=== PATIENT | female | born 1930 | race Caucasian/White ===

== ENCOUNTER 2016-12-10 21:01 | Inpatient (IN) | payer MEDICARE, BC ==
[~2016-12-10] VITALS: Ht 160 cm; Wt 51.3 kg
[2016-12-10 21:22] VITALS: BP 130/58
[2016-12-10 21:43] LABS: BASOPHILS % (AUTO) 1.7 % (0.0-2.0); EOSINOPHILS % (AUTO) 3.6 % (0.0-3.0); LYMPHOCYTES % (AUTO) 30.3 % (20.0-45.0); MEAN CORPUSCULAR HEMOGLOBIN 31.1 PG (27.0-31.0); MEAN CORPUSCULAR HGB CONC 32.3 G/DL (32.0-36.0); MEAN CORPUSCULAR VOLUME 96 FL (80-99); MEAN PLATELET VOLUME 5.5 FL (6.5-10.1); MONOCYTES % (AUTO) 7.9 % (1.0-10.0); NEUTROPHILS % (AUTO) 56.5 % (45.0-75.0); PLATELET COUNT 331 K/UL (150-450); RED CELL DISTRIBUTION WIDTH 13.3 % (11.6-14.8); WHITE BLOOD COUNT 6.9 K/UL (4.8-10.8)
--- NOTE | 2016-12-10 21:45 | Emergency Room Report ---
History of Present Illness General Chief Complaint: Generalized Weakness Source: Family Member, EMS Present Illness HPI The patient is 86-year-old female brought in by ambulance after a reported near syncopal episode. The patient had prior history of dementia. Patient was noted to be in a restaurant seated when she became less responsive. She was not answering questions or responding. She's not noted to have seizure activity or change in her skin color. Patient had recently been started on an antihistamine. She denied having any vomiting or diarrhea. Patient was brought in by EMS. She was noted to have adequate blood sugar. She had not been having any fever. She is normally cared for by her son Allergies: Coded Allergies: No Known Allergies (Unverified , 12/10/16) Patient History Past Medical History: see triage record Now: No Reviewed Nursing Documentation: PMH: Agreed, PSxH: Agreed Nursing Documentation-PMH Past Medical History: No History, Except For Hx Neurological Problems: Yes - Alzeimer, dementia Review of Systems All Other Systems: negative except mentioned in HPI Physical Exam Vital Signs Date Time Temp Pulse Resp B/P Pulse Ox O2 Delivery O2 Flow Rate FiO2 12/10/16 21:00 98.6 68 14 106/72 99 Room Air Sp02 EP Interpretation: reviewed, normal General Appearance: normal inspection, well appearing, no apparent distress, alert, other - GCS 14 E4 V4 M6 Head: atraumatic ENT: normal ENT inspection, hearing grossly normal, normal voice Neck: normal inspection, full range of motion, supple, no bony tend Respiratory: normal inspection, lungs clear, normal breath sounds, no respiratory distress, no retraction, no wheezing Cardiovascular #1: regular rate, rhythm, no edema Gastrointestinal: normal inspection, normal bowel sounds, non tender, soft, no guarding, no hernia Genitourinary: no CVA tenderness Musculoskeletal: normal inspection, back normal, normal range of motion Neurologic: normal inspection, alert, responsive, television announcer III-XII nml as tested, motor strength/tone normal, speech normal Psychiatric: normal inspection, judgement/insight normal, mood/affect normal Skin: normal inspection, normal color, no rash Medical Decision Making Diagnostic Impression: Primary Impression: Near syncope Additional Impression: Dementia ER Course lDifferential diagnosis included but not limited to syncope versus seizure. Potential causes for syncope included but was not limited to arrhythmia, dehydration, acute coronary syndrome, severe anemia, pulmonary embolus.Because of complexity of patient's case laboratory testing and imaging studies were ordered. The patient was noted to have normal white blood count. The laboratory testing was unremarkable. Chest x-ray one view interpreted by me showed a left lung effusion versus scarring without evident infiltrate normal cardiac size. Patient was discussed with Dr. Serna for observation for near syncope. Labs Test 12/10/16 21:33 White Blood Count 6.9 K/UL (4.8-10.8) Red Blood Count 4.50 M/UL (4.20-5.40) Hemoglobin 14.0 G/DL (12.0-16.0) Hematocrit 43.3 % (37.0-47.0) Mean Corpuscular Volume 96 FL (80-99) Mean Corpuscular Hemoglobin 31.1 PG (27.0-31.0) Mean Corpuscular Hemoglobin Concent 32.3 G/DL (32.0-36.0) Red Cell Distribution Width 13.3 % (11.6-14.8) Platelet Count 331 K/UL (150-450) Mean Platelet Volume 5.5 FL (6.5-10.1) Neutrophils (%) (Auto) 56.5 % (45.0-75.0) Lymphocytes (%) (Auto) 30.3 % (20.0-45.0) Monocytes (%) (Auto) 7.9 % (1.0-10.0) Eosinophils (%) (Auto) 3.6 % (0.0-3.0) Basophils (%) (Auto) 1.7 % (0.0-2.0) Chest X-Ray Diagnostic Results EP Interpretation: Yes Findings: no consolidation, no pneumothorax, no acute cardiopulmonary disease, other - effusion left Number of Views: 1 Last Vital Signs Date Time Temp Pulse Resp B/P Pulse Ox O2 Delivery O2 Flow Rate FiO2 12/10/16 21:22 70 15 130/58 99 Room Air 12/10/16 21:00 98.6 Status: unchanged Disposition: ADMITTED INPATIENT Condition: Serious Referrals: NON PHYSICIAN (PCP) Lupillo Hernandez Dec 10, 2016 21:45
[2016-12-10 21:58] LABS: ALANINE AMINOTRANSFERASE 6 U/L (3-33); ANION GAP 14 (5-15); ASPARTATE AMINO TRANSFERASE 13 U/L (5-40); CALCIUM 8.9 mg/dL (8.6-10.2); CARBON DIOXIDE 26 mEQ/L (20-30); CHLORIDE 101 mEQ/L (98-107); CREATININE 0.8 mg/dL (0.5-0.9); HEMOLYSIS 5; POTASSIUM 3.6 mEQ/L (3.4-4.9); SODIUM 141 mEQ/L (135-145); TOTAL PROTEIN 6.6 g/dL (6.6-8.7); TROPONIN I < 0.30 ng/mL (<=0.30)
[2016-12-10 22:09] LABS: CKMB < 1.5 ng/mL (< 3.8)
[2016-12-10] MEDS ORDERED: ALENDRONATE SOD10 MG ORAL (22:19)
[2016-12-10 22:32] LABS: APPEARANCE,URINE CLEAR; KETONES,URINE NEGATIVE (NEGATIVE); LEUKOCYTE ESTERASE ,URINE NEGATIVE (NEGATIVE); NITRITE,URINE NEGATIVE (NEGATIVE); PH,URINE 6.5 (4.5-8.0); PROTEIN,URINE 1+ (NEGATIVE); UROBILINOGEN,URINE NORMAL MG/DL (0.0-1.0)
[2016-12-10 22:54] VITALS: BP 132/62
[2016-12-10 22:58] LABS: RBC,URINE 0-2 /HPF (0 - 2); WBC,URINE 0-2 /HPF (0 - 2)
[2016-12-10 22:59] LABS: BACTERIA,URINE OCCASIONAL /HPF
[2016-12-11] VITALS (7 sets, daily range): BP systolic 109–149; BP diastolic 55–92
[2016-12-11] MEDS: NovoLOG Insulin Flexpen SUBQ SCH ×3 (06:24→22:25)
[2016-12-11] MEDS: ALENDRONATE 10 MG ORAL SCH (08:00)
[2016-12-11] MEDS: Aspirin Baby 81mg ORAL SCH (08:31)
[2016-12-11] MEDS: Heparin 5000 units/ml inj SUBQ SCH ×2 (08:33→22:22)
--- NOTE | 2016-12-11 09:27 | Diagnostic Imaging Report ---
Indications: Syncope, shortness of breath Technique: Portable AP chest Findings: Comparison: None , Gas lucency overlies cardiac silhouette, lateral partially obscured. Apparent increased density in left lung base, obscuring left hemidiaphragm and costophrenic angle. Right lung and pleura clear. Aortic arch calcified. No abnormal upper mediastinal widening. Bones are demineralized. IMPRESSION: Prominent hiatal versus paraesophageal versus diaphragmatic hernia Superimposed hazy opacity left lung base may represent atelectasis, pneumonia, pleural effusion Cardiomegaly not excludable Aortosclerosis Osteopenia Written discrepancy report sent to emergency Department via PACS at time of this dictation.
[2016-12-11 09:38] LABS: TROPONIN I < 0.30 ng/mL (<=0.30)
--- NOTE | 2016-12-11 21:37 | History and Physical Report ---
DATE OF ADMISSION: 12/10/2016 REASON FOR ADMISSION: Generalized weakness and syncope. HISTORY OF PRESENT ILLNESS: The patient is an 86-year-old female brought in by ambulance after a fall with near syncopal episode. The patient does have history of dementia and is confused. The patient apparently became unresponsive and not able to answer questions. No current seizure activity. No loss of bowel or bladder. The patient denies any nausea or vomiting. She is otherwise comfortable. She is fairly poor historian. The patient was seen and evaluated in the emergency room and readmitted for further workup and further monitoring. The patient did had chest x-ray, which is fairly negative and EKG without any acute changes. The patient currently acute in nature. PAST MEDICAL HISTORY: Notable for dementia. MEDICATIONS: Reviewed. ALLERGIES: Reviewed. SOCIAL HISTORY: The patient is cared by her son. She is currently retired and unemployed. FAMILY HISTORY: Otherwise noncontributory. REVIEW OF SYSTEMS: Otherwise negative. PHYSICAL EXAMINATION: GENERAL: The patient is a well-developed female, otherwise comfortable, no significant distress. VITAL SIGNS: In the emergency room, blood pressure 106/72, pulse 68, respiratory rate 14, temperature 96 degrees, and saturation 99%. HEENT: Negative. Extraocular movements are grossly intact. NECK: Supple. LUNGS: Clear. Symmetric. No rhonchi or wheezes. CARDIAC: S1 and S2. Regular rate and rhythm without murmurs, rubs, or gallops. ABDOMEN: Soft, nontender, and nondistended. EXTREMITIES: No cyanosis, clubbing, or edema. NEUROLOGIC: Grossly nonfocal. Alert, responsive, and appropriate. No clear focal findings. LABORATORY DATA: Reviewed. Medication reviewed. White count 6.9, hematocrit 43, and platelets are 351,000. Chemistries, otherwise negative. Blood sugar is 173. Albumin 3.3. IMPRESSION: 1. Syncope of unclear etiology possibly vasovagal. 2. Hyperglycemia. 3. Protein calorie malnutrition. 4. Dementia. 5. Confusion. 6. Chronic encephalopathy. 7. Possible cause dehydration. RECOMMENDATIONS: Admit the patient to telemetry floor. Monitor clinically. Subcutaneous heparin, aspirin, and IV hydration. Follow up labs, follow up CT of the head, and MRI of the brain. Follow up blood cultures. ST, OT, and PT evaluation. Carotid duplex and an echocardiogram, serial EKG to follow. If all stable and negative, we will proceed with discharge planning. Arturo Serna M.D. DR: Krystian JOB#: [id number] CC: ALEJANDRA
[2016-12-12 00:10] VITALS: BP 147/74
[2016-12-12 04:23] VITALS: BP 150/75
[2016-12-12] MEDS: NovoLOG Insulin Flexpen SUBQ SCH ×4 (06:26→21:00)
[2016-12-12] MEDS: ALENDRONATE 10 MG ORAL SCH (07:23)
[2016-12-12 07:57] VITALS: BP 159/84
--- NOTE | 2016-12-12 08:37 | General Progress Note ---
Assessment/Plan Assessment/Plan IMPRESSION: 1. Syncope of unclear etiology possibly vasovagal. 2. Hyperglycemia. 3. Protein calorie malnutrition. 4. Dementia. 5. Confusion. 6. Chronic encephalopathy. 7. Possible cause dehydration. PLAN await final work up currently pending continue same tele monitoring PT evaluation home discharge pending results impression, plan, and exam edited and reviewed in detail care discussed with RN Subjective Allergies: Coded Allergies: No Known Allergies (Unverified , 12/10/16) Subjective comfortable at present NAD Objective Last 24 Hour Vital Signs Date Time Temp Pulse Resp B/P Pulse Ox O2 Delivery O2 Flow Rate FiO2 12/12/16 07:57 97.9 79 18 159/84 96 Room Air 12/12/16 04:23 97.3 72 20 150/75 94 Room Air 12/12/16 03:45 69 12/12/16 00:28 65 12/12/16 00:28 65 12/12/16 00:10 97.0 68 20 147/74 94 Room Air 12/11/16 23:49 74 12/11/16 20:00 98.1 76 18 109/55 96 Room Air 12/11/16 19:52 74 12/11/16 16:00 97.4 74 18 143/71 97 Room Air 12/11/16 12:00 71 12/11/16 11:33 97.5 78 18 122/62 96 Room Air Intake and Output 12/11/16 12/12/16 19:00 07:00 Intake Total 1040 ml 1550 ml Balance 1040 ml 1550 ml Intake Oral 240 ml 350 ml IV Total 800 ml 1200 ml # Voids 2 4 Laboratory Tests 12/11/16 08:50: Troponin I < 0.30 Height (Feet): 5 Height (Inches): 3.00 Weight (Pounds): 113 Objective PHYSICAL EXAMINATION: GENERAL: The patient is a well-developed female, otherwise comfortable, no significant distress. HEENT: Negative. Extraocular movements are grossly intact. NECK: Supple. LUNGS: Clear. Symmetric. No rhonchi or wheezes. CARDIAC: S1 and S2. Regular rate and rhythm without murmurs, rubs, or gallops. ABDOMEN: Soft, nontender, and nondistended. no HSM EXTREMITIES: No cyanosis, clubbing, or edema. NEUROLOGIC: Grossly nonfocal. Alert, responsive, and appropriate. No clear focal findings. ISHAAYA,KELLY Dec 12, 2016 08:37
[2016-12-12] MEDS: Aspirin Baby 81mg ORAL SCH (09:37)
[2016-12-12] MEDS: Heparin 5000 units/ml inj SUBQ SCH ×2 (09:38→21:43)
[2016-12-12 12:11] VITALS: BP 156/94
[2016-12-12 16:00] VITALS: BP 140/82
--- NOTE | 2016-12-12 19:48 | Cardiology Report ---
APPROVED REPORT EKG Measurement Heart [id number] Sinus rhythm with 1st degree AV block Left axis deviation Abnormal ECG
[2016-12-12 20:00] VITALS: BP 124/65
[2016-12-13 00:26] VITALS: BP 140/70
[2016-12-13 04:10] VITALS: BP 137/75
[2016-12-13] MEDS: NovoLOG Insulin Flexpen SUBQ SCH ×2 (06:22→11:30)
[2016-12-13 08:00] VITALS: BP 111/61
[2016-12-13] MEDS: ALENDRONATE 10 MG ORAL SCH (08:00)
--- NOTE | 2016-12-13 08:51 | General Progress Note ---
Assessment/Plan Assessment/Plan IMPRESSION: 1. Syncope of unclear etiology possibly vasovagal. 2. Hyperglycemia. 3. Protein calorie malnutrition. 4. Dementia. 5. Confusion. 6. Chronic encephalopathy. 7. Possible cause dehydration. PLAN discharge planning continue same tele monitoring may dc PT evaluation noted home discharge if safe today impression, plan, and exam edited and reviewed in detail care discussed with RN Subjective Allergies: Coded Allergies: No Known Allergies (Unverified , 12/10/16) Subjective comfortable at present NAD still weak Objective Last 24 Hour Vital Signs Date Time Temp Pulse Resp B/P Pulse Ox O2 Delivery O2 Flow Rate FiO2 12/13/16 04:10 97.7 84 20 137/75 94 Room Air 12/13/16 04:00 75 12/13/16 00:26 97.0 94 20 140/70 95 Room Air 12/13/16 00:00 87 12/12/16 20:00 91 12/12/16 20:00 97.8 95 18 124/65 95 Room Air 12/12/16 16:00 110 12/12/16 16:00 97.9 106 20 140/82 93 Room Air 12/12/16 12:11 97.0 97 18 156/94 95 Room Air 12/12/16 12:00 103 Intake and Output 12/12/16 12/13/16 19:00 07:00 Intake Total 1300 ml 1380 ml Balance 1300 ml 1380 ml Intake Oral 600 ml 480 ml IV Total 700 ml 900 ml # Voids 1 4 Height (Feet): 5 Height (Inches): 3.00 Weight (Pounds): 113 Objective PHYSICAL EXAMINATION: GENERAL: The patient is a well-developed female, otherwise comfortable, no significant distress. HEENT: Negative. Extraocular movements are grossly intact. NECK: Supple. LUNGS: Clear. Symmetric. No rhonchi or wheezes. CARDIAC: S1 and S2. Regular rate and rhythm without murmurs, rubs, or gallops. ABDOMEN: Soft, nontender, and nondistended. no HSM EXTREMITIES: No cyanosis, clubbing, or edema. NEUROLOGIC: Grossly nonfocal. Alert, responsive, and appropriate. No clear focal findings. KELLY MALCOLM Dec 13, 2016 08:51
--- NOTE | 2016-12-13 09:39 | Diagnostic Imaging Report ---
Indications: Syncope, dementia, new onset weakness Technique: Sagittal and axial T1 weighted FLAIR, axial T2-weighted fat saturated fast spin echo propeller, T2-weighted FLAIR, T2*-weighted gradient echo, and diffusion sequences of the brain were performed without IV gadolinium administration. Findings: Comparison: Noncontrast CT head 12/11/16 Extensive, partially confluent T2 signal hyperintensity is present throughout the bilateral cerebral subcentimeter circumscribed focus of signal change/parenchymal loss right campos radiata. Multiple small nodular foci of signal void/susceptibility artifact scattered throughout bilateral cerebral hemispheres on gradient echo images. Ventricles, cisterns, sulci are diffusely prominent. Periventricular, deep, and subcortical white matter.. No evidence of mass or hemorrhage, other signal abnormality, mass effect, midline shift, hydrocephalus, or increased intracranial pressure. No restricted diffusion. Central vascular flow voids are preserved. Apparent degenerative change, subluxation, possible vertebral body compression fracture, kyphotic angulation deformity, spinal stenosis, possible cord compression in upper cervical spine, suboptimally imaged. IMPRESSION: No evidence of acute intracranial pathology, unchanged. Extensive signal change throughout the bilateral cerebral white matter, nonspecific, likely chronic microangiopathic in nature Evidence of prior multifocal cerebral parenchymal microhemorrhage raises the possibility of amyloid angiopathy Old lacunar infarct right campos radiata Atrophy Cervical vertebral changes as described. Neural impingement not excludable. Consider MRI of the cervical spine for further evaluation as clinically indicated.
[2016-12-13] MEDS: Aspirin Baby 81mg ORAL SCH (09:50)
[2016-12-13] MEDS: Heparin 5000 units/ml inj SUBQ SCH (09:52)
[2016-12-13 12:00] VITALS: BP 111/54
--- NOTE | 2016-12-14 14:04 | Discharge Summary ---
Discharge Summary Hospital Course Date of Admission Dec 10, 2016 at 23:20 Date of Discharge Dec 13, 2016 at 13:14 Admitting Diagnosis near syncope, dehydration HPI Linda Gamble is a 86 year old female who was admitted on Dec 10, 2016 at 23:20 for Near Syncope,Dehydration Hospital Course dc summary dictated #[id number] Discharge Medications Continued Medications: Alendronate Sodium* (Fosamax*) 10 Mg Tablet Unknown Dose ORAL, TAB 0 Refills Take with 6-8 oz water at least 30 minutes before first food; Sit upright for at least 30min after medication administration Discharge Condition Upon Discharge: improving, stable Discharge Disposition Patient was discharged to Home with Home Health(06) Discharge Diagnoses: Discharge Instructions Discharge Instructions Special Instructions I have been assigned to complete a D/C Summary on this account. I was not involved in the patient management Stacey Fuentes NP ([facility]) Dec 14, 2016 14:04
--- NOTE | 2016-12-14 15:50 | Diagnostic Imaging Report ---
Indications: Altered mental status Technique: Continuous helical CT imaging of the brain was performed with nonionic exposure control on a Siemens sensation [address] scanner. Axial and coronal images were reconstructed at 5 mm slice thickness and interval. CTDI volume(s): 70 mGy Total DLP: 1337 mGy-cm Findings: Comparison: None Motion artifact degrades all images. low attenuation is present throughout the bilateral periventricular and deep cerebral white matter. Ventricles, cisterns, and sulci are diffusely prominent. No evidence of mass or hemorrhage, mass effect, midline shift, hydrocephalus, or increased intracranial pressure. Bone window images are unremarkable. Visualized paranasal sinuses and mastoid air cells are clear. IMPRESSION: No evidence of acute intracranial pathology , limited as described. Bilateral cerebral periventricular and deepwhite matter low attenuation, nonspecific, likely chronic microvascular ischemic in nature. Atrophy This correlates with preliminary report generated overnight by [employer]. The CT scanner at [facility] is accredited by the [employer] and the scans are performed using protocols designed to limit radiation exposure to as low as reasonably achievable to attain images of sufficient resolution adequate for diagnostic evaluation.
--- NOTE | 2016-12-14 15:59 | Cardiology Report ---
APPROVED REPORT EXAM: Two-dimensional and M-mode echocardiogram with Doppler and color Doppler. INDICATION Bundle Branch Block M-Mode DIMENSIONS IVSd0.7 (0.7-1.1cm)Left Atrium (MM)3.7 (1.6-4.0cm) LVDd5.2 (3.5-5.6cm)Aortic Root2.8 (2.0-3.7cm) PWd0.9 (0.7-1.1cm)Aortic Cusp Exc.1.9 (1.5-2.0cm) LVDs2.7 (2.5-4.0cm) PWs0.9 cm Technically difficult study due to poor acoustic windows. Normal left ventricular chamber size, systolic function and wall motion. Left ventricular ejection fraction estimated to be 55-60%. Mild left ventricular hypertrophy. Moderate posterior pericardial effusion. Mild left atrial enlargement by 2D. Right cardiac chamber sizes are within normal limits. Focal aortic valve sclerosis with adequate cusp excursion Thickened mitral valve leaflets with normal excursion. Mitral annulus and aortic root calcification. Pulmonic valve is well visualized. Normal tricuspid valve structure. IVC is normal in size with physiologic collapse. A color flow and spectral Doppler study was performed and revealed: No aortic regurgitation. Mild mitral regurgitation. Left ventricular diastolic dysfunction grade 1. Mild tricuspid regurgitation. Tricuspid systolic velocities suggests peak right ventricular systolic pressure of 23 mmHg
--- NOTE | 2016-12-16 07:18 | Discharge Summary 2 SIG ---
DATE OF ADMISSION: 12/10/2016 DATE OF DISCHARGE: 12/13/2016 REASON FOR ADMISSION: 86 years old female, was brought by ambulance after reported near syncopal episode. The patient with a prior history of dementia. The patient was noted sitting in the restaurant and becoming less responsive. She was not answering questions. She was not responding at all. No seizure activity or weakness. No blackouts. No falls, no injury prior to this episode. There was no nausea, vomiting, or diarrhea noted. No chest pain. No shortness of breath. Blood sugar was stable upon measuring . No fevers, no chills. Laboratory workup in the emergency room revealed unremarkable CT of the head, no acute intracranial pathology. The patient transferred to telemetry for further management. ADMITTING DIAGNOSES: 1. Syncope, unknown etiology. 2. Chronic encephalopathy. 3. Alzheimer dementia. 4. Diabetes mellitus with hyperglycemia. HOSPITAL COURSE: The patient started on IV hydration. The patient started on aspirin. Chest x-ray revealed no acute cardiopulmonary disease, but atelectasis . The patient was pancultured , blood cultures were negative. Urinalysis was negative. No evidence of acute infectious process. Troponin x2 was negative. EKG revealed sinus rhythm, no ST changes, and no ectopy; therefore, the patient ruled out for acute CO. There was also no evidence of arrhythmia on telemetry. Primary doctor ordered to follow up with MRI of the brain, which also revealed no acute intracranial pathology, but demonstrated old right lacunar infarct with extensive cerebrovascular disease of small vessels. Carotid duplex was essentially negative. Fall precautions were maintained. The patient was working with physical and occupational therapists. Pain management provided. Bowel regimen instituted. DVT prophylaxis provided. The patient was stable to be discharged home with home health. FINAL DIAGNOSES: 1. Syncope, likely vasovagal versus dehydration. 2. 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 3. Alzheimer dementia. 4. History of old right lacunar infarct. 5. Diabetes mellitus with hyperglycemia. DISCHARGE MEDICATIONS: See medication reconciliation list. DISCHARGE INSTRUCTIONS: The patient discharged home with home health services. Patient to follow up with primary medical doctor. Arturo Serna M.D. I have been assigned to dictate discharge summary on this account and I was not involved in the patient's management. Stacey Fuentes N.P. ([facility]te[facility]) DR: HAI JOB#: [id number] CC: ALEJANDRA
--- NOTE | 2016-12-18 17:18 | Diagnostic Imaging Report ---
APPROVED REPORT CPT Code: 23908 Vascular Symptoms Syncope arteries. The Doppler spectral flow analysis indicates the degree of stenosis is minimal in the common, internal and external carotid arteries. VERTEBRAL - The vertebral arteries are patent, without evidence of stenosis or steal.
== END 2016-12-13 13:14 | disposition home health service (06) | DRG 640 ==
LOC: EDBD 21:01 → EMR 21:32 → OBSVTOIN 23:20 → 2E 23:20 → EDBEDREQ 23:26
DX: E86.0 Dehydration (principal); G93.49 Other encephalopathy; E46 Unspecified protein-calorie malnutrition; G30.9 Alzheimer's disease, unspecified; R73.9 Hyperglycemia, unspecified; F02.80 Dementia in other diseases classified elsewhere, unspecified severity, without behavioral disturbance, psychotic disturbance, mood disturbance, and anxiety; Z68.20 Body mass index [BMI] 20.0-20.9, adult
CPT/HCPCS: 36415; 70450; 70551; 71010; 80053; 81003; 82550; 82553; 82962; 83605; 83880; 84484; 85025; 87040; 93005; 93306; 93880; J1815